=== PATIENT | male | born 1945 | race Caucasian/White ===

== ENCOUNTER 2018-01-31 06:59 | Day surgery (SDC) | payer OTHER ==
[~2018-01-31] VITALS: Ht 182.9 cm; Wt 93.1 kg
[~2018-01-31 06:59] MED LIST: ASPI81CH43 PO; CILO100T PO; ISOS30TA4 PO; LEVO75TA6 PO; LOSA-46 PO; METF-370 PO; METO25TA62 PO; RANI-226 PO; SIMV-13 PO
[2018-01-31] MEDS ORDERED: LIDOCAINE 2% (LOCAL ANESTH.) PF 5ml SDV ONE (07:49)
[2018-01-31] MEDS ORDERED: IODIXANOL 320MG/ML 100ML BTL IV ONE (07:49)
[2018-01-31] MEDS ORDERED: ANGIOMAX 250 MG VIAL IV ONE (08:25)
[2018-01-31] MEDS ORDERED: fentaNYL CITRATE 100 MCG/2 ML VL ONE (08:25)
[2018-01-31] MEDS ORDERED: MIDAZOLAM HCL 1MG/1ML-2 ML VIAL ONE ×2 (08:25→08:56)
[2018-01-31] MEDS ORDERED: SODIUM CHL 0.9% 50 ML ONE (08:25)
[2018-01-31] MEDS ORDERED: CLOPIDOGREL 300 MG TAB ONE (09:05)
[2018-01-31] MEDS ORDERED: HYDROmorphone HCL 2 MG/ML VL ONE (09:08)
[2018-01-31] MEDS ORDERED: HYDROcodone-ACET 5/325MG TAB PO PRN (10:30)
[2018-01-31] MEDS ORDERED: ONDANSETRON HCL 4 MG/2 ML VIAL IV PRN (10:30)
[2018-01-31] MEDS ORDERED: ACETAMINOPHEN 500 MG TAB PO PRN (10:30)
== END 2018-01-31 15:00 | disposition home or self-care (01) ==
LOC: CATH 06:59
PROVIDERS: ATTEND Internal Medicine
DX: I73.9 Peripheral vascular disease, unspecified (principal); I10 Essential (primary) hypertension; E78.5 Hyperlipidemia, unspecified; I25.2 Old myocardial infarction; Z95.5 Presence of coronary angioplasty implant and graft; Z82.49 Family history of ischemic heart disease and other diseases of the circulatory system; Z87.891 Personal history of nicotine dependence; E11.9 Type 2 diabetes mellitus without complications; Z79.82 Long term (current) use of aspirin; Z79.84 Long term (current) use of oral hypoglycemic drugs; Z79.899 Other long term (current) drug therapy
CPT/HCPCS: 37224; 75716; A6257; C1725; C1769; C1887; C1894; J0583; J1170; J1644; J2001; J2250; J3010; J7030; Q9967; 99152

== ENCOUNTER 2019-01-10 06:45 | Day surgery (SDC) | payer OTHER ==
[~2019-01-10] VITALS: Ht 182.9 cm; Wt 89.4 kg
[~2019-01-10 06:45] MED LIST changes: -CILO100T PO; -LOSA-46 PO; +LOSA-69 PO
[2019-01-10] MEDS ORDERED: IODIXANOL 320MG/ML 100ML BTL IV ONE ×3 (08:00→09:15)
[2019-01-10] MEDS ORDERED: LIDOCAINE 2%HCL (LOCAL ANESTH.) INJ 20ML MDV ONE (08:00)
[2019-01-10] MEDS ORDERED: fentaNYL CITRATE 100 MCG/2 ML VL ONE (08:41)
[2019-01-10] MEDS ORDERED: ANGIOMAX 250 MG VIAL IV ONE (08:41)
[2019-01-10] MEDS ORDERED: SODIUM CHL 0.9% 50 ML ONE (08:42)
[2019-01-10] MEDS ORDERED: MIDAZOLAM HCL 1MG/1ML-2 ML VIAL ONE ×2 (08:42→09:23)
== END 2019-01-10 14:00 | disposition home or self-care (01) ==
LOC: CATH 06:45
PROVIDERS: ATTEND Internal Medicine
DX: T82.856A Stenosis of peripheral vascular stent, initial encounter (principal); I73.9 Peripheral vascular disease, unspecified; I25.10 Atherosclerotic heart disease of native coronary artery without angina pectoris; I25.2 Old myocardial infarction; I11.0 Hypertensive heart disease with heart failure; I50.9 Heart failure, unspecified; E78.00 Pure hypercholesterolemia, unspecified; E23.2 Diabetes insipidus; E78.5 Hyperlipidemia, unspecified; M19.90 Unspecified osteoarthritis, unspecified site; Z79.84 Long term (current) use of oral hypoglycemic drugs; Z79.82 Long term (current) use of aspirin; Z79.899 Other long term (current) drug therapy; Z98.890 Other specified postprocedural states; Z95.818 Presence of other cardiac implants and grafts; Y82.8 Other medical devices associated with adverse incidents; Y92.89 Other specified places as the place of occurrence of the external cause
CPT/HCPCS: 37224; 93005; C1725; C1753; C1760; C1769; C1887; C1894; J0583; J1644; J2250; J3010; J7030; Q9967; 99152; 99153

== ENCOUNTER 2023-07-06 15:35 | Inpatient (IN) | payer OTHER ==
[~2023-07-06] VITALS: Ht 182.9 cm; Wt 66.4 kg
[~2023-07-06 15:35] MED LIST changes: +BUPR-346 PO; +FAMO40TA7 PO; +GLIP-110 PO; +HYDR-4798 PO; +HYDR-4902 PO; +ISOS1TAB28 PO; -ISOS30TA4 PO; +LEVO500T91 PO; -LEVO75TA6 PO; +LEVO88TA4 PO; -LOSA-69 PO; +LOSA50TA46 PO; -METF-370 PO; +METF-929 PO; -METO25TA62 PO; +METO25TA93 PO; +OXYB5TAB10 PO; -RANI-226 PO; -SIMV-13 PO; +SIMV40TA18 PO
[2023-07-06 16:46] LABS: Basophils # (auto) 0.1 10 ^3/uL (0-0.2); Basophils % (auto) 0.6 % (0.0-2.0); Eosinophils # (auto) 0.3 10 ^3/uL (0-0.8); Eosinophils % (auto) 2.9 % (0.0-7.0); Hematocrit 32.6 % (41.0-53.0); Hemoglobin 11.1 g/dL (13.5-17.5); Lymphocytes # (auto) 1.5 10 ^3/uL (0.4-5.4); Mean Corpuscular Volume 91.3 fL (80.0-100.0); Monocytes % (auto) 10.3 % (0.0-12.0); Neutrophils # (auto) 6.5 10 ^3/uL (1.6-8.6); Neutrophils % (auto) 70.2 % (37.0-80.0); Red Blood Cells 3.57 10^6/uL (4.5-5.90); Red Cell Distribution Width 13.8 % (11.8-14.3); White Blood Cell 9.3 10^3/uL (4.4-10.8)
[2023-07-06 16:54] LABS: Chloride 102 mmol/L (98-107); Potassium 3.1 mmol/L (3.5-5.1); Sodium 138 mmol/L (136-145)
[2023-07-06 16:55] LABS: Anion Gap 9 (5-15); Calcium 9.3 mg/dL (8.5-10.1); Carbon Dioxide 27 mmol/L (20-30)
[2023-07-06 17:00] LABS: Blood Urea Nitrogen 10 mg/dL (9-23); Glucose 68 mg/dL (74-106)
[2023-07-06 17:07] LABS: INR 1.03 (0.9-1.15); Partial Thromboplastin Time 34.3 SEC (24.5-34.5); Prothrombin Time 10.8 sec (9.3-11.8)
[2023-07-06] MEDS: CLINDAMYCIN 600MG IV 50 ML IV ONE (17:27)
[2023-07-06 17:48] LABS: Erythrocyte Sedimentation Rate 77 mm/hr (0-20)
[2023-07-06] MEDS ORDERED: MORPHINE SULFATE INJ 2 MG/ml SYRG IV PRN (23:15)
[2023-07-06] MEDS ORDERED: VANCOMYCIN PER PHARMACY 0 MG IV SCH (23:15)
[2023-07-06] MEDS ORDERED: ACETAMINOPHEN 325 MG TAB PO PRN (23:15)
[2023-07-06] MEDS ORDERED: NITROGLYCERIN 0.4 MG SL TAB SL PRN (23:15)
[2023-07-06] MEDS ORDERED: ONDANSETRON HCL 4 MG/2 ML VIAL IV PRN (23:15)
[2023-07-06] MEDS ORDERED: DEXTROSE (50%) 50ML SYRG IV PRN (23:15)
[2023-07-06] MEDS: POTASSIUM CHL 20 Meq TABLET PO ONE (23:21)
[2023-07-07] VITALS (8 sets, daily range): BP systolic 130–155; BP diastolic 69–80; PULSE 73–110; RESP 13–19; TEMP 97.7–99.6; O2SAT 92–100
[2023-07-07] MEDS: SODIUM CHLORIDE 0.9% 1,000 ML IV SCH (01:33)
[2023-07-07] MEDS: VANCOMYCIN 1GM/200ML 200 ML IV SCH ×2 (01:33→16:46)
[2023-07-07] MEDS: HYDROcodone-ACET 5/325MG TAB PO PRN (02:09)
[2023-07-07] MEDS: PIPERACILLIN-TAZOB 3.375GM 100 ML IV SCH (06:19)
[2023-07-07] MEDS: ACCU-CHEK COMFORT CURVE STRIP VI SCH (06:19)
[2023-07-07] MEDS: InsuLIN REG 1unit/0.01ml Soln (100units/ml) SC SCH (06:27)
[2023-07-07] MEDS: DOCUSATE SOD 100 MG CAP PO PRN (09:00)
[2023-07-07] MEDS: ENOXAPARIN SOD 40 MG/0.4 ML SYRINGE SC SCH (10:00)
[2023-07-07] MEDS ORDERED: PATIENTS OWN MEDICATION (Simvastatin 1 TAB) PO SCH (18:00)
[2023-07-07] MEDS: ATORVASTATIN 20 MG TAB PO SCH (21:59)
[2023-07-08] MEDS: MELATONIN 5 MG TAB PO ONE (04:15)
[2023-07-08 05:00] VITALS: BP 139/60; PULSE 79; RESP 20; TEMP 98; O2SAT 100
[2023-07-08] MEDS: OXYBUTYNIN CHL 5 MG TAB PO SCH (06:12)
[2023-07-08] MEDS: LEVOTHYROXINE SODIUM 88 MCG TAB PO SCH (06:12)
[2023-07-08 08:00] VITALS: PULSE 80; PULSE 83; RESP 18; O2SAT 98
[2023-07-08 09:00] VITALS: BP 143/67; PULSE 81; RESP 20; O2SAT 95
[2023-07-08] MEDS: LOSARTAN POTASSIUM 50 MG TAB PO SCH (09:59)
[2023-07-08] MEDS ORDERED: PATIENTS OWN MEDICATION (Isosorbide Mononitrate (Isosorbide Mononitrate Er) 30 MG) PO SCH (10:00)
[2023-07-08] MEDS: FAMOTIDINE 20 MG TAB PO SCH (10:00)
[2023-07-08] MEDS ORDERED: PATIENTS OWN MEDICATION (Metoprolol Succinate (Metoprolol Succinate Er) 25 MG) PO SCH (10:00)
[2023-07-08] MEDS: buPROPion HCL 100 MG TAB PO SCH (10:00)
[2023-07-08] MEDS ORDERED: FAMOTIDINE 40 MG PO SCH (10:00)
[2023-07-08] MEDS: METOPROLOL SUCCINATE XL 50 MG TAB PO SCH (10:00)
[2023-07-08] MEDS: ISOSORBIDE MONONITRATE ER 60 MG TAB PO SCH (10:02)
[2023-07-08 17:00] VITALS: BP 130/61; PULSE 88; RESP 19; O2SAT 97
[2023-07-08 19:30] VITALS: PULSE 81; PULSE 82; RESP 17; O2SAT 97
[2023-07-08 22:00] VITALS: BP 127/68; PULSE 83; RESP 18; O2SAT 97
[2023-07-09 05:00] VITALS: BP 130/65; PULSE 83; RESP 17; O2SAT 93
[2023-07-09 08:00] VITALS: PULSE 82; PULSE 86; RESP 16; O2SAT 98
[2023-07-09 08:52] VITALS: BP 140/74; PULSE 93; RESP 18; TEMP 98.7; O2SAT 97
[2023-07-09 19:30] VITALS: PULSE 83; RESP 17; O2SAT 97
[2023-07-09 22:00] VITALS: BP 124/69; PULSE 71; RESP 18; TEMP 98.1; O2SAT 100
[2023-07-09] MEDS: VANCOMYCIN 1GM/200ML 200 ML IV SCH (23:42)
[2023-07-10] VITALS (7 sets, daily range): BP systolic 112–150; BP diastolic 55–74; PULSE 65–83; RESP 16–20; TEMP 98–98.4; O2SAT 93–100
[2023-07-10 07:20] LABS: Calcium 8.5 mg/dL (8.5-10.1)
[2023-07-10 07:25] LABS: BUN/Creatinine Ratio 12.6 (10.0-20.0)
[2023-07-10 07:26] LABS: Albumin 3.7 g/dL (3.2-4.8)
[2023-07-10 07:27] LABS: Phosphorus 2.5 mg/dL (2.4-5.1)
[2023-07-10 07:29] LABS: Potassium 2.3 mmol/L (3.5-5.1)
[2023-07-10 07:42] LABS: INR 1.08 (0.9-1.15); Partial Thromboplastin Time 37.4 SEC (24.5-34.5); Prothrombin Time 11.3 sec (9.3-11.8)
[2023-07-10] MEDS: POTASSIUM CHL 20 Meq TABLET PO ONE (09:23)
[2023-07-10] MEDS: POTASSIUM CHLORIDE 40 MEQ, LIDOCAINE 1% (LOCAL ANESTH.) 4 ML in SODIUM CHL 0.9% 250 ML IV ONE (10:30)
[2023-07-10 16:58] LABS: Potassium 3.2 mmol/L (3.5-5.1)
[2023-07-10 17:14] LABS: Magnesium 1.4 mg/dL (1.6-2.6)
[2023-07-11] VITALS (8 sets, daily range): BP systolic 115–142; BP diastolic 60–86; PULSE 63–90; RESP 16–18; TEMP 36.6; O2SAT 95–99
[2023-07-11 06:34] LABS: Anion Gap 10 (5-15); Carbon Dioxide 22 mmol/L (20-30); Chloride 111 mmol/L (98-107); Potassium 2.8 mmol/L (3.5-5.1); Sodium 143 mmol/L (136-145)
[2023-07-11 06:35] LABS: Basophils # (auto) 0.1 10 ^3/uL (0-0.2); Basophils % (auto) 0.8 % (0.0-2.0); Calcium 8.7 mg/dL (8.7-10.4); Eosinophils # (auto) 0.4 10 ^3/uL (0-0.8); Eosinophils % (auto) 5.2 % (0.0-7.0); Hematocrit 32.9 % (41.0-53.0); Lymphocytes # (auto) 1.1 10 ^3/uL (0.4-5.4); Lymphocytes % (auto) 13.5 % (10.0-50.0); Mean Corpuscular Hemoglobin 30.7 pg (28.0-32.0); Mean Corpuscular Hgb Conc. 33.3 g/dL (32.0-36.0); Mean Corpuscular Volume 92.1 fL (80.0-100.0); Monocytes # (auto) 0.7 10 ^3/uL (0-1.3); Monocytes % (auto) 9.1 % (0.0-12.0); Neutrophils # (auto) 5.9 10 ^3/uL (1.6-8.6); Neutrophils % (auto) 71.4 % (37.0-80.0); Nucleated Red Blood Cells % 0.1 %; Red Blood Cells 3.57 10^6/uL (4.5-5.90); Red Cell Distribution Width 13.5 % (11.8-14.3); White Blood Cell 8.2 10^3/uL (4.4-10.8)
[2023-07-11 06:40] LABS: Glucose 122 mg/dL (74-106)
[2023-07-11 06:41] LABS: Blood Urea Nitrogen 10 mg/dL (9-23); Magnesium 1.7 mg/dL (1.6-2.6)
[2023-07-11] MEDS: BUPIVACAINE 0.5% P/F INJ 10 ML VIAL ONE (07:24)
[2023-07-11] MEDS ORDERED: MIDAZOLAM HCL 2MG/2ML 2ml VIAL (1mg/ml) ONE (07:27)
[2023-07-11] MEDS ORDERED: fentaNYL CITRATE 100 MCG/2 ML VL ONE (07:27)
[2023-07-11] MEDS ORDERED: MORPHINE SULF PF 5 MG/10 ML VIAL ONE (07:27)
[2023-07-11] MEDS ORDERED: KETAMINE 50mg/ML 1ml syringe ONE ×2 (07:28→08:27)
[2023-07-11] MEDS ORDERED: ONDANSETRON HCL 4 MG/2 ML VIAL ONE (07:28)
[2023-07-11] MEDS ORDERED: PROPOFOL 10 MG/ML 20 ML IV ONE (07:28)
[2023-07-11] MEDS ORDERED: ePHEDrine SULFATE 50 MG/ML AMP ONE (07:28)
[2023-07-11] MEDS ORDERED: GLYCOPYRROLATE 0.2 MG/ML 1ML VIAL ONE (07:28)
[2023-07-11] MEDS ORDERED: PHENYLEPHRINE HCL 10 MG/ML VL ONE (07:41)
[2023-07-11] MEDS: DexAMETHasone SOD PHOS 4 MG/1ML SDV INJ ONE (08:25)
[2023-07-11] MEDS ORDERED: ONDANSETRON HCL 4 MG/2 ML VIAL IV PRN ×2 (09:45)
[2023-07-11] MEDS ORDERED: NALOXONE HCL 0.4 MG/ML VIAL IV PRN (09:45)
[2023-07-11] MEDS ORDERED: diphenhdrAMINE HCL 50 MG/1 ML VL IV PRN (09:45)
[2023-07-11] MEDS ORDERED: DexAMETHasone SOD PHOS 10MG/1ML VIAL INJ IV PRN (09:45)
[2023-07-11] MEDS ORDERED: KETOROLAC TROMETH 30 MG/ML 1ML VIAL IV PRN (09:45)
[2023-07-11] MEDS ORDERED: HYDROmorphone HCL 2 MG/ML VL/or syr IV PRN (09:45)
[2023-07-11] MEDS: POTASSIUM CHL 20MEQ/100ML 100 ML IV SCH (09:54)
[2023-07-11] MEDS: ACCU-CHEK COMFORT CURVE STRIP VI ONE (11:32)
[2023-07-11] MEDS: POTASSIUM CHL 10MEQ/100ML 100 ML IV ONE (11:32)
[2023-07-11 13:10] LABS: Urine Bacteria FEW /hpf (None Seen); Urine Blood 2+ /uL (Negative); Urine Budding Yeast FEW /hpf (None Seen); Urine Clarity HAZY (Clear); Urine Hyaline Cast FEW /lpf (0 - 2); Urine Protein, UAD TRACE (Negative); Urine Urobilinogen Normal (Negative); Urine WBC 208 /hpf (0 - 3)
[2023-07-11 13:11] LABS: Urine Color Straw (Yellow)
[2023-07-11] MEDS: D5W/SOD CHL 0.45%/KCL 20MEQ 1,000 ML IV SCH (13:50)
[2023-07-12 07:13] LABS: Anion Gap 9 (5-15); Carbon Dioxide 21 mmol/L (20-30); Chloride 110 mmol/L (98-107); Potassium 2.9 mmol/L (3.5-5.1); Sodium 140 mmol/L (136-145)
[2023-07-12 07:19] LABS: BUN/Creatinine Ratio 8.4 (10.0-20.0); Blood Urea Nitrogen 7 mg/dL (9-23); Glucose 158 mg/dL (74-106)
[2023-07-12 07:27] LABS: Basophils # (auto) 0 10 ^3/uL (0-0.2); Eosinophils # (auto) 0 10 ^3/uL (0-0.8); Hematocrit 25.4 % (41.0-53.0); Hemoglobin 8.7 g/dL (13.5-17.5); Lymphocytes # (auto) 1.1 10 ^3/uL (0.4-5.4); Lymphocytes % (auto) 9.6 % (10.0-50.0); Mean Corpuscular Hemoglobin 30.5 pg (28.0-32.0); Mean Corpuscular Hgb Conc. 34.3 g/dL (32.0-36.0); Monocytes # (auto) 0.6 10 ^3/uL (0-1.3); Monocytes % (auto) 5.8 % (0.0-12.0); Neutrophils # (auto) 9.5 10 ^3/uL (1.6-8.6); Neutrophils % (auto) 84.6 % (37.0-80.0); Red Blood Cells 2.85 10^6/uL (4.5-5.90); Red Cell Distribution Width 13.9 % (11.8-14.3); White Blood Cell 11.2 10^3/uL (4.4-10.8)
[2023-07-12 08:00] VITALS: PULSE 60; PULSE 88; RESP 18; O2SAT 95
[2023-07-12 09:00] VITALS: BP 149/67; PULSE 78; RESP 18; TEMP 98.5; O2SAT 98
[2023-07-12] MEDS: HYDROmorphone HCL 2 MG/ML VL/or syr IV PRN (10:02)
[2023-07-12 13:00] VITALS: BP 157/82; PULSE 77; RESP 19; TEMP 98.5; O2SAT 98
[2023-07-12] MEDS: VANCOMYCIN 1GM/200ML 200 ML IV SCH (13:05)
[2023-07-12 14:02] LABS: COVID19 ANTIGEN SOFIA FIA NEGATIVE (NEGATIVE)
[2023-07-12 17:00] VITALS: BP 157/83; PULSE 83; RESP 17; TEMP 98.4; O2SAT 97
[2023-07-12] MEDS: POTASSIUM CHL 20 Meq TABLET PO ONE (17:41)
[2023-07-12] MEDS: POTASSIUM CHLORIDE 20 MEQ, LIDOCAINE 1% (LOCAL ANESTH.) 2 ML in SODIUM CHL 0.9% 100 ML IV ONE (17:41)
[2023-07-12 20:00] VITALS: BP 160/80; PULSE 74; PULSE 79; RESP 18; TEMP 97.8; O2SAT 99
[2023-07-12] MEDS: MELATONIN 5 MG TAB PO SCH (21:36)
[2023-07-13 05:00] VITALS: BP 142/76; PULSE 65; RESP 18; TEMP 97.9; O2SAT 99
[2023-07-13 06:34] LABS: Hematocrit 26.5 % (41.0-53.0); Hemoglobin 9.1 g/dL (13.5-17.5)
[2023-07-13 06:41] LABS: Chloride 110 mmol/L (98-107); Potassium 2.7 mmol/L (3.5-5.1); Sodium 141 mmol/L (136-145)
[2023-07-13 06:42] LABS: Anion Gap 7 (5-15); Calcium 7.7 mg/dL (8.7-10.4); Carbon Dioxide 24 mmol/L (20-30)
[2023-07-13 06:47] LABS: Blood Urea Nitrogen 7 mg/dL (9-23); Glucose 113 mg/dL (74-106)
[2023-07-13 06:48] LABS: Magnesium 1.3 mg/dL (1.6-2.6)
[2023-07-13 08:00] VITALS: PULSE 66; PULSE 85; RESP 18; O2SAT 96
[2023-07-13 09:00] VITALS: BP 131/69; PULSE 62; RESP 18; TEMP 97.2; O2SAT 97
[2023-07-13] MEDS: POTASSIUM CHL 20 Meq TABLET PO ONE ×2 (12:50→19:45)
[2023-07-13] MEDS: MAGNESIUM SULFATE 1GM/100ML 100 ML IV SCH (12:50)
[2023-07-13] MEDS: POTASSIUM CHLORIDE 20 MEQ, LIDOCAINE 1% (LOCAL ANESTH.) 2 ML in SODIUM CHL 0.9% 100 ML IV ONE (15:28)
[2023-07-13 18:47] LABS: Potassium 3.3 mmol/L (3.5-5.1)
[2023-07-13 18:54] LABS: Magnesium 2.3 mg/dL (1.6-2.6)
[2023-07-13 20:00] VITALS: BP 132/69; PULSE 64; PULSE 70; RESP 19; TEMP 97.6; O2SAT 98
[2023-07-13 22:00] VITALS: BP 132/69; PULSE 64; RESP 19; TEMP 97.6; O2SAT 98
[2023-07-14 05:00] VITALS: BP 137/71; PULSE 66; RESP 19; TEMP 98.3; O2SAT 95
[2023-07-14 05:49] LABS: Alanine Aminotransferase 47 U/L (7-40); Albumin 3.3 g/dL (3.2-4.8); Alkaline Phosphatase 88 U/L (46-116); Anion Gap 6 (5-15); Aspartate Aminotransferase 42 U/L (13-40); BUN/Creatinine Ratio 9.1 (10.0-20.0); Blood Urea Nitrogen 7 mg/dL (9-23); Calcium 7.6 mg/dL (8.7-10.4); Carbon Dioxide 23 mmol/L (20-30); Chloride 109 mmol/L (98-107); Glucose 119 mg/dL (74-106); Magnesium 1.9 mg/dL (1.6-2.6); Potassium 3.4 mmol/L (3.5-5.1); Sodium 138 mmol/L (136-145)
[2023-07-14 05:50] LABS: Bilirubin, Total 0.4 mg/dL (0.2-1.0); Total Protein 5.9 g/dL (5.7-8.2)
[2023-07-14 07:57] VITALS: PULSE 71; RESP 16; O2SAT 95
[2023-07-14 08:00] VITALS: PULSE 66
[2023-07-14] MEDS: POTASSIUM CHL 20 Meq TABLET PO ONE (09:00)
[2023-07-14] MEDS: MAGNESIUM SULFATE 1GM/100ML 100 ML IV SCH (09:02)
[2023-07-14 15:48] VITALS: BP 138/74; PULSE 77
[2023-07-14 20:00] VITALS: PULSE 97
== END 2023-07-14 23:16 | DRG 475 ==
LOC: ER 15:35 → TELE 23:36 → TELE-EAST 07-07 05:47
PROVIDERS: ADMIT Nurse Practitioner Family; ATTEND Internal Medicine
PROC: 0Y6C0Z3 Detachment at Right Upper Leg, Low, Open Approach (ICD-10-PCS; principal; 2023-07-11 07:50)
DX: T87.51 Necrosis of amputation stump, right upper extremity (principal); E11.52 Type 2 diabetes mellitus with diabetic peripheral angiopathy with gangrene; I96 Gangrene, not elsewhere classified; L03.115 Cellulitis of right lower limb; M86.9 Osteomyelitis, unspecified; N13.8 Other obstructive and reflux uropathy; E11.69 Type 2 diabetes mellitus with other specified complication; E87.6 Hypokalemia; I10 Essential (primary) hypertension; I87.2 Venous insufficiency (chronic) (peripheral); K57.30 Diverticulosis of large intestine without perforation or abscess without bleeding; N31.9 Neuromuscular dysfunction of bladder, unspecified; N32.0 Bladder-neck obstruction; Z20.822 Contact with and (suspected) exposure to COVID-19; R31.9 Hematuria, unspecified; N40.0 Benign prostatic hyperplasia without lower urinary tract symptoms; N40.1 Benign prostatic hyperplasia with lower urinary tract symptoms; Z79.82 Long term (current) use of aspirin; Z91.81 History of falling; Z99.3 Dependence on wheelchair
CPT/HCPCS: 36415; 71045; 73700; 73718; 80048; 80053; 80069; 80202; 81001; 82565; 82962; 83735; 84132; 85014; 85018; 85025; 85610; 85652; 85730; 86850; 86900; 86901; 87081; 87426; 93926; 97110; 97163; 97530; G0378; J1100; J1815; J2001; J2250; J2405; J2543; J2704; J3480; J3490

== ENCOUNTER 2023-08-02 08:29 | Emergency (ER) | payer MEDICARE, OTHER ==
[~2023-08-02] VITALS: Ht 182.9 cm; Wt 54.5 kg
[2023-08-02 08:50] VITALS: PULSE 66; RESP 14; O2SAT 95
[2023-08-02 10:02] LABS: Basophils # (auto) 0.1 10 ^3/uL (0-0.2); Basophils % (auto) 0.9 % (0.0-2.0); Eosinophils # (auto) 0.2 10 ^3/uL (0-0.8); Eosinophils % (auto) 3.1 % (0.0-7.0); Hematocrit 33.4 % (41.0-53.0); Lymphocytes # (auto) 1.6 10 ^3/uL (0.4-5.4); Lymphocytes % (auto) 19.4 % (10.0-50.0); Mean Corpuscular Hemoglobin 29.7 pg (28.0-32.0); Monocytes # (auto) 0.6 10 ^3/uL (0-1.3); Monocytes % (auto) 7.7 % (0.0-12.0); Neutrophils # (auto) 5.6 10 ^3/uL (1.6-8.6); Neutrophils % (auto) 68.9 % (37.0-80.0); Nucleated Red Blood Cells % 0.1 %; Red Blood Cells 3.71 10^6/uL (4.5-5.90); Red Cell Distribution Width 14.3 % (11.8-14.3); White Blood Cell 8.2 10^3/uL (4.4-10.8)
[2023-08-02 10:14] LABS: Chloride 104 mmol/L (98-107); Sodium 138 mmol/L (136-145)
[2023-08-02 10:15] LABS: Anion Gap 5 (5-15); Carbon Dioxide 29 mmol/L (20-30)
[2023-08-02 10:16] LABS: Calcium 9.1 mg/dL (8.5-10.1)
[2023-08-02 10:20] LABS: BUN/Creatinine Ratio 14.3 (10.0-20.0); Blood Urea Nitrogen 13 mg/dL (9-23); Glucose 150 mg/dL (74-106)
[2023-08-02] MEDS: POTASSIUM EFFERVESENT TAB 25 MEQ PO ONE (10:51)
[2023-08-02 12:02] LABS: Urine Bacteria MANY /hpf (None Seen); Urine Blood TRACE /uL (Negative); Urine Clarity Clear (Clear); Urine Color Yellow (Yellow); Urine Mucus FEW (None Seen); Urine Protein, UAD TRACE (Negative); Urine Specific Gravity 1.013 (1.001-1.035); Urine Urobilinogen Normal (Negative); Urine WBC 26 /hpf (0 - 3)
[2023-08-02] MEDS ORDERED: BACDST PO (12:19)
[2023-08-02] MEDS: cefTRIAXone SOD 1,000 MG VL IM ONE (12:43)
[2023-08-02 14:00] VITALS: BP 140/86; TEMP 98.8
[2023-08-02 14:01] VITALS: PULSE 75; RESP 16; O2SAT 99
== END 2023-08-02 14:51 | disposition home or self-care (01) ==
LOC: EDBD 08:29 → ER 08:29
DX: N39.0 Urinary tract infection, site not specified (principal); I10 Essential (primary) hypertension; I25.2 Old myocardial infarction; E11.9 Type 2 diabetes mellitus without complications; E03.9 Hypothyroidism, unspecified; E78.5 Hyperlipidemia, unspecified; Z79.82 Long term (current) use of aspirin; Z79.2 Long term (current) use of antibiotics; Z79.899 Other long term (current) drug therapy
CPT/HCPCS: 36415; 51702; 80048; 81001; 85025; 96372; 99284; J0696

== ENCOUNTER → 2024-06-13 | Day surgery (SDC) | payer MEDICARE, MEDICAID ==
[~2024-06-13] VITALS: Ht 182.9 cm; Wt 73.0 kg
[~2024-06-13] MED LIST changes: +BACDST PO; +DexAMETHasone SOD PHOS 10MG/1ML VIAL INJ ONE; +HYDROmorphone HCL 2 MG/ML VL/or syr IV PRN; +LIDOCAINE W/ EPINEPHRINE 1% 20ML VIAL ONE; +LOSA-534 PO; -LOSA50TA46 PO; +MIDAZOLAM HCL 2MG/2ML 2ml VIAL (1mg/ml) IV PRN; +MIDAZOLAM HCL 2MG/2ML 2ml VIAL (1mg/ml) ONE; +MORPHINE SULFATE 4 MG/ML SYR/VIAL IV PRN; +ONDANSETRON HCL 4 MG/2 ML VIAL IV ONE; -OXYB5TAB10 PO; +OXYB5TAB14 PO; +PHENYLEPHRINE HCL 10 MG/ML VL IV ONE; +PROPOFOL 10 MG/ML 20 ML IV ONE; +ceFAZolin 2 GM/D5W100ml 100 ML IV ONE; +cefTRIAXone 2GM/50ML D5W 50 ML IV ONE; +ePHEDrine SULFATE 50 MG/ML AMP IV PRN; +fentaNYL CITRATE 100 MCG/2 ML VL ONE; +hydrALAZINE HCL 20 MG/ML VL IV PRN
--- NOTE | 2024-06-13 12:59 | ED.PDOC ---
General HPI Comments 79 Y M presents to the ED with CC of suprapubic tube replacement. Patient states that, he received a temporary suprapubic catheter 2 weeks ago which became dislodged yesterday. Patient relays, that he was supposed to receive a permeant catheter by his urologist today (06/13/24). Patient denies dysuria, hematuria, or inability to void. Chief Complaint: Urinary Time Seen by MD: 12:50 Primary Care Provider: ROSCOE Juan notes: Nurses Notes, Medications, Allergies Allergies: Coded Allergies: NO KNOWN ALLERGIES (Unverified , 01/08/19) Home Meds Active Scripts Sulfamethoxazole W/Trimethopri (Bactrim Ds Tablet) 1 Tab Tb, 1 TAB PO BID for 10 Days, #20 TAB Prov:ANTOINETTE JIMENES MD 08/02/23 Hydrocodone-Acetaminophen (Hydrocodone Bitartrate/AC 5-325 mg) 1 Tab Tab, 1 TAB PO Q8HP PRN, #14 TAB Prov:MERCY SMILEY MD 06/09/23 Levofloxacin Hemihydrate (LEVOFLOXACIN) 500 Mg Tab, 1 TAB PO DAILY, #7 TAB Prov:MERCY SMILEY MD 06/09/23 Reported Medications Hydrocodone-Acetaminophen (Hydrocodone Bitartrate/AC 10-325 mg) 1 Tab Tab, 1 TAB PO TID PRN 06/06/23 Metformin HCl (Metformin Hydrochloride) 1,000 Mg Tab, 1000 MG PO BID, TAB 06/06/23 Famotidine (Famotidine) 40 Mg Tab, 40 MG PO DAILY, TAB 06/06/23 Oxybutynin Chloride (Oxybutynin Chloride) 5 Mg Tab, 10 MG PO QAM 05/13/23 Bupropion Hcl (Bupropion Hcl) 100 Mg Tab, 300 MG PO DAILY for 30 Days, MG 05/13/23 Levothyroxine Sodium (Levothyroxine Sodium) 88 Mcg Tab, 88 MCG PO QAM for 30 Days, MCG 05/13/23 Glipizide (Glipizide Er) 5 Mg Tab, 5 MG PO DAILY 05/13/23 Losartan Potassium (Losartan Potassium) 50 Mg Tab, 50 MG PO DAILY for 30 Days, MG 05/13/23 Simvastatin (Simvastatin) 40 Mg Tab, 1 TAB PO QPM, #30 TAB 5 Refills 01/27/18 Aspirin (Asa) 81 Mg Ch, 81 MG PO DAILY 01/27/18 Metoprolol Succinate (Metoprolol Succinate Er) 25 Mg Tab, 25 MG PO DAILY for 30 Days, MG 01/27/18 Isosorbide Mononitrate (Isosorbide Mononitrate Er) 30 Mg Tab, 30 MG PO DAILY for 30 Days, MG 01/27/18 Information Source: Patient Mode of Arrival: Wheelchair Severity: Mild Inability to void: None Timing: Weeks Duration: Since onset Prehospital treatment: None Symptoms: None History of: None Location: Suprapubic Penile discharge: None Modifying factors: None associated signs and symptoms: None Past Medical History PAST MEDICAL HISTORY: DM, High Lipids, HTN, PA, Thyroid Surgical History: PTCA Family History Family History: Family hx of Cancer Social History Smoker: Non-Smoker Alcohol: Denies ETOH Use Drugs: Denies Drug Use Lives In: Home Constitutional: denies: chills, diaphoresis, fatigue, fever, malaise, sweats, weakness, others EENTM: denies: blurred vision, double vision, ear bleeding, ear discharge, ear drainage, ear pain, ear ringing, eye pain, eye redness, hearing loss, mouth pain, mouth swelling, nasal discharge, nose bleeding, nose congestion, nose pain, photophobia, tearing, throat pain, throat swelling, voice changes, others Respiratory: denies: cough, hemoptysis, orthopnea, SOB at rest, shortness of breath, SOB with excertion, stridor, wheezing, others Cardiovascular: denies: chest pain, dizzy spells, diaphoresis, Dyspnea on exertion, edema, irregular heart beat, left arm pain, lightheadedness, palpitations, PND, syncope, others Gastrointestinal: denies: abdomen distended, abdominal pain, blood streaked bowels, constipated, diarrhea, dysphagia, difficulty swallowing, hematemesis, melena, nausea, poor appetite, poor fluid intake, rectal bleeding, rectal pain, vomiting, others Genitourinary: denies: burning, dysuria, flank pain, frequency, hematuria, incontinence, penile discharge, penile sore, pain, testicle pain, testicle swelling, urgency, others Neurological: denies: dizziness, fainting, headache, left sided numbness, left sided weakness, numbness, paresthesia, pre-existing deficit, right sided numbness, right sided weakness, seizure, speech problems, tingling, tremors, weakness, others Musculoskeletal: denies: back pain, gout, joint pain, joint swelling, muscle pain, muscle stiffness, neck pain, others Integumetry: denies: bruises, change in color, change in hair/nails, dryness, laceration, lesions, lumps, rash, wounds, others Allergic/Immunocompromised: denies: Difficulty Healing, Frequent Infections, Hives, Itching, others Hematologic/Lymphatic: denies: anemia, blood clots, easy bleeding, easy bruising, swollen glands, others Psychiatric: denies: anxiety, bipolar disorder, depression, hopeless, panic disorder, schizophrenia, sleepless, suicidal, others All Other Systems: Reviewed and Negative Was a procedure done? Was a procedure done?: No Differential Diagnosis Kidney stone (Female): N/A Kidney stone (Male): N/A Penile/Scrotal: N/A Urinary Problem (Male): N/A Urinary Problem (Female): N/A X-Ray, Labs, Meds, VS Vital Signs Date Time Temp Pulse Resp B/P (MAP) Pulse Ox O2 Delivery O2 Flow Rate FiO2 06/13/24 12:45 99.2 72 16 95/70 (78) 100 Lab Test 06/13/24 12:23 Range/Units White Blood Count 11.1 H 4.4-10.8 10^3/uL Red Blood Count 4.27 L 4.5-5.90 10^6/uL Hemoglobin 12.7 L 13.5-17.5 g/dL Hematocrit 38.6 L 41.0-53.0 % Mean Corpuscular Volume 90.4 80.0-100.0 fL Mean Corpuscular Hemoglobin 29.8 28.0-32.0 pg Mean Corpuscular Hemoglobin Concent 33.0 32.0-36.0 g/dL Red Cell Distribution Width 14.0 11.8-14.3 % Platelet Count 394 140-450 10^3/uL Mean Platelet Volume 6.4 L 6.9-10.8 fL Neutrophils (%) (Auto) 72.0 37.0-80.0 % Lymphocytes (%) (Auto) 19.3 10.0-50.0 % Monocytes (%) (Auto) 6.3 0.0-12.0 % Eosinophils (%) (Auto) 1.6 0.0-7.0 % Basophils (%) (Auto) 0.8 0.0-2.0 % Neutrophils # (Auto) 8.0 1.6-8.6 10 ^3/uL Lymphocytes # (Auto) 2.1 0.4-5.4 10 ^3/uL Monocytes # (Auto) 0.7 0-1.3 10 ^3/uL Eosinophils # (Auto) 0.2 0-0.8 10 ^3/uL Basophils # (Auto) 0.1 0-0.2 10 ^3/uL Nucleated Red Blood Cells 0.1 % Prothrombin Time 10.6 9.3-11.8 sec Prothrombin Time INR 1.00 0.9-1.15 Sodium Level Pending Potassium Level Pending Chloride Level Pending Carbon Dioxide Level Pending Anion Gap Pending Blood Urea Nitrogen Pending Creatinine Pending Glomerular Filtration Rate Calc Pending BUN/Creatinine Ratio Pending Serum Glucose Pending Calcium Level Pending Total Bilirubin Pending Aspartate Amino Transferase (AST) Pending Alanine Aminotransferase (ALT) Pending Alkaline Phosphatase Pending Total Protein Pending Albumin Pending CXR; FINDINGS: Lines and Tubes: None Lungs: No focal consolidation. Pleura: No effusion. No pneumothorax. Cardiomediastinal contours: Unremarkable Bones: No acute osseous abnormality. IMPRESSION: No acute cardiopulmonary disease. ATED BY: NEW CANTU MD DICTATED DATE/TIME: 06/13/24 1306 SIGNED BY: NEW CANTU MD SIGNED DATE/TIME: 06/13/24 1306 CC: Time of 1ST Reevaluation: 13:20 Reevaluation 1ST: Unchanged Patient Education/Counseling: Diagnosis, Treatment Family Education/Counseling: No Family Present Critical Care Note Critical Care Time?: No Stability Stability form required: No Heart Score Heart Score: Heart Score Response (Comments) Value History N/A 0 EKG N/A 0 Age N/A 0 Risk Factors N/A 0 Troponin N/A 0 Total 0 I personally scribed for SIDDHARTHA LLOYD MD ([email or web address]) on 06/13/24 at 12:58. Electronically submitted by America Encinas ([email or web address]). I personally scribed for SIDDHARTHA LLOYD MD ([email or web address]) on 06/13/24 at 14:55. Electronically submitted by America Encinas ([email or web address]). SIDDHARTHA LLOYD MD Jun 13, 2024 12:58
--- NOTE | 2024-06-13 13:07 | DVH ---
EXAM: XY CHEST XRAY 1 VIEW Indication: Pain Technique: Single frontal view of the chest was obtained Comparison: XY CHEST XRAY 1 VIEW on DOS: 07/10/23, XY CHEST PORTABLE on DOS: 06/04/23 FINDINGS: Lines and Tubes: None Lungs: No focal consolidation. Pleura: No effusion. No pneumothorax. Cardiomediastinal contours: Unremarkable Bones: No acute osseous abnormality. IMPRESSION: No acute cardiopulmonary disease.
--- NOTE | 2024-06-13 13:45 | DVHINCON2 ---
Date of service: Jun 13, 2024 Reason for Consultation SPT malfunction History of Present Illness History Source: Patient, Spouse/Significant Other, RN Notes, MD Notes, Old Records Exam Limitations: No limitations HPI 79 yo male known to urology service for BPH, urethral erosion and urinary retention requiring temporary SPT placement with Ami kit (done at [facility] on 06/03/23) He presented to urology office today with c/o SPT not draining and stitches had popped. I was able to flush the SPT and secure in place. He needs emergent placement of formal SPT for chronic management of urinary retention. Pt has been NPO except for water sips this morning with his blood pressure pills. He was referred to ER for procedure. Home Meds Active Scripts Sulfamethoxazole W/Trimethopri (Bactrim Ds Tablet) 1 Tab Tb, 1 TAB PO BID for 10 Days, #20 TAB Prov:ANTOINETTE JIMENES MD 08/02/23 Hydrocodone-Acetaminophen (Hydrocodone Bitartrate/AC 5-325 mg) 1 Tab Tab, 1 TAB PO Q8HP PRN, #14 TAB Prov:MERCY SMILEY MD 06/09/23 Levofloxacin Hemihydrate (LEVOFLOXACIN) 500 Mg Tab, 1 TAB PO DAILY, #7 TAB Prov:MERCY SMILEY MD 06/09/23 Reported Medications Hydrocodone-Acetaminophen (Hydrocodone Bitartrate/AC 10-325 mg) 1 Tab Tab, 1 TAB PO TID PRN 06/06/23 Metformin HCl (Metformin Hydrochloride) 1,000 Mg Tab, 1000 MG PO BID, TAB 06/06/23 Famotidine (Famotidine) 40 Mg Tab, 40 MG PO DAILY, TAB 06/06/23 Oxybutynin Chloride (Oxybutynin Chloride) 5 Mg Tab, 10 MG PO QAM 05/13/23 Bupropion Hcl (Bupropion Hcl) 100 Mg Tab, 300 MG PO DAILY for 30 Days, MG 05/13/23 Levothyroxine Sodium (Levothyroxine Sodium) 88 Mcg Tab, 88 MCG PO QAM for 30 Days, MCG 05/13/23 Glipizide (Glipizide Er) 5 Mg Tab, 5 MG PO DAILY 05/13/23 Losartan Potassium (Losartan Potassium) 50 Mg Tab, 50 MG PO DAILY for 30 Days, MG 05/13/23 Simvastatin (Simvastatin) 40 Mg Tab, 1 TAB PO QPM, #30 TAB 5 Refills 01/27/18 Aspirin (Asa) 81 Mg Ch, 81 MG PO DAILY 01/27/18 Metoprolol Succinate (Metoprolol Succinate Er) 25 Mg Tab, 25 MG PO DAILY for 30 Days, MG 01/27/18 Isosorbide Mononitrate (Isosorbide Mononitrate Er) 30 Mg Tab, 30 MG PO DAILY for 30 Days, MG 01/27/18 Past Medical History Renal/: UTI, Benign prostatic enlarg. 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
[2024-06-13 13:51] LABS: Basophils # (auto) 0.1 10 ^3/uL (0-0.2); Basophils % (auto) 0.8 % (0.0-2.0); Eosinophils # (auto) 0.2 10 ^3/uL (0-0.8); Eosinophils % (auto) 1.6 % (0.0-7.0); Hematocrit 38.6 % (41.0-53.0); Hemoglobin 12.7 g/dL (13.5-17.5); Lymphocytes # (auto) 2.1 10 ^3/uL (0.4-5.4); Lymphocytes % (auto) 19.3 % (10.0-50.0); Mean Corpuscular Hemoglobin 29.8 pg (28.0-32.0); Mean Corpuscular Volume 90.4 fL (80.0-100.0); Monocytes # (auto) 0.7 10 ^3/uL (0-1.3); Monocytes % (auto) 6.3 % (0.0-12.0); Nucleated Red Blood Cells % 0.1 %; Platelet Count (auto) 394 10^3/uL (140-450); Red Blood Cells 4.27 10^6/uL (4.5-5.90); White Blood Cell 11.1 10^3/uL (4.4-10.8)
[2024-06-13 13:55] LABS: Prothrombin Time 10.6 sec (9.3-11.8)
[2024-06-13 15:13] LABS: Alanine Aminotransferase 30 U/L (7-40); Albumin 4.7 g/dL (3.2-4.8); Alkaline Phosphatase 102 U/L (46-116); Anion Gap 6 (5-15); Aspartate Aminotransferase 19 U/L (13-40); Bilirubin, Total 0.5 mg/dL (0.2-1.0); Blood Urea Nitrogen 17 mg/dL (9-23); Calcium 10.3 mg/dL (8.7-10.4); Carbon Dioxide 24 mmol/L (20-31); Sodium 138 mmol/L (136-145)
[2024-06-13 15:38] LABS: Chloride 108 mmol/L (98-107); Glucose 123 mg/dL (74-106)
--- NOTE | 2024-06-13 16:04 | DVHDS2 ---
New Physician D'charge PN Admitting Diagnosis Admitting Diagnosis Urinary retention Urethral stricture disease Malfunctioning SP tube Discharge Diagnosis Same Operations or Procedures Cystoscopy with DVIU Suprapubic catheter placement Reason(s) For Hospitalization Surgery Treatment Plan Discharge Condition of Discharge Fair Disposition Home Discharge Instructions Diet: Regular Activity: Light activity Activity comment: As tolerated Medications: Given Follow Up Care Follow Up/Referral: Six weeks for 1st SP tube exchange Discharge Statement: "Patient was advised to return to the ER or call 911 if any headaches, dizziness, shortness of breath, chest pain, abdominal pain, bleeding, fevers, or worsening of medical condition. Patient was counseled about treatment plan, medications, possible side effects, patientverbalized understanding. All questions were answered to the best of my ability. This discharge took greater then 30 minutes in planning, reviewing documentation, counseling the patient, and discussing with other team members." EMERY GARRETT MD Jun 13, 2024 16:04
[2024-06-13 16:10] VITALS: PULSE 79; RESP 13; TEMP 97.8; O2SAT 100
[2024-06-13 16:13] VITALS: PULSE 76; RESP 15; O2SAT 99
--- NOTE | 2024-06-13 16:15 | POSTOP ---
Post-Operative Note Post-Operative Note Preop Diagnosis Urinary retention Urethral stricture disease Malfunctioning SP tube Postop Diagnosis: Same Operation performed Cystoscopy with DVIU Suprapubic catheter placement Anesthesia: Mac Anesthesiologist: Lucian Garrett Date 06/13/24 Time 16:14 EMERY GARRETT MD Jun 13, 2024 16:15
[2024-06-13 17:52] VITALS: BP 136/69; PULSE 78; RESP 11; O2SAT 97
== END | disposition home or self-care (01) ==
LOC: ER 12:38 → SUR 12:39 → ER 16:10
PROVIDERS: ATTEND Urology
DX: N40.1 Benign prostatic hyperplasia with lower urinary tract symptoms (principal); N35.919 Unspecified urethral stricture, male, unspecified site; N31.9 Neuromuscular dysfunction of bladder, unspecified; R33.8 Other retention of urine; I10 Essential (primary) hypertension; E11.9 Type 2 diabetes mellitus without complications; E03.9 Hypothyroidism, unspecified; Z79.82 Long term (current) use of aspirin; Z79.84 Long term (current) use of oral hypoglycemic drugs; Z79.890 Hormone replacement therapy; Z79.899 Other long term (current) drug therapy; Z87.440 Personal history of urinary (tract) infections
CPT/HCPCS: 36415; 51040; 52276; 71045; 80053; 82962; 85025; 85610; 88300; 99285; J1100; J2250; J2371; J2704; J3010